=== PATIENT | male | born 1975 | race Caucasian/White ===

== ENCOUNTER 2019-06-19 06:58 | Inpatient (IN) ==
[~2019-06-19 06:58] MED LIST: BUPIVACAINE HCL/PF 10 ML VIAL ONE; CLINDAMYCIN PHOSPHATE 900 MG in DEXTROSE 5 % IN WATER 100 ML IV PRN; LIDOCAINE HCL 20 ML VIAL ONE; MIDAZOLAM HCL/PF 1 MG/ML VIAL ONE; PROPOFOL VIAL IV ONE; ROPIVACAINE HCL/PF 100 MG, EPINEPHrine 0.2 MG, KETOROLAC TROMETHAMINE 30 MG in NORMAL S... IJ PRN; TRANEXAMIC ACID 1,000 MG in NORMAL SALINE 100 ML IV PRN
[2019-06-19] MEDS: RINGER'S SOLUTION,LACTATED 1,000 ML IV PRN ×2 (07:51→10:50)
--- NOTE | 2019-06-19 09:08 | ANES ---
Anesthesia Pre Procedure Eval Vitals/Labs: Last Vital Signs Temp 37.0 C 06/19/19 07:30 Pulse 94 06/19/19 07:30 Resp 18 06/19/19 07:30 BP 116/88 06/19/19 07:30 Pulse Ox 96 06/19/19 07:30 HOME MEDICATIONS Albuterol Sulfate [Albuterol Sulfate 2.5 MG/3 ML] 2.5 mg INHALATION Q4H PRN 02/03/18 [Last Taken 06/19/19] albuterol sulfate 90 mcg/actuation aerosol inhaler 2 puff INHALATION Q4H PRN g 05/23/19 [Last Taken 06/19/19] gabapentin 600 mg tablet 600 mg PO DAILY PRN 05/23/19 [Last Taken Unknown] lorazepam 0.5 mg tablet 1 mg PO TID PRN tab 05/23/19 [Last Taken 06/18/19] metformin 850 mg tablet 850 mg PO BID 05/23/19 [Last Taken 06/18/19] Ascorbic Acid [Vitamin C] 1,000 mg PO DAILY 06/19/19 [Last Taken 06/18/19] Multivitamin [Multivitamins] 1 ea PO DAILY 06/19/19 [Last Taken 06/18/19] Allergies/Adverse Reactions: Allergies Allergy/AdvReac Type Severity Reaction Status Date / Time Penicillins Allergy Severe Anaphylaxis Verified 06/13/19 09:09 house dust Allergy Mild rash, Verified 06/19/19 07:45 swollen eyes escitalopram [From Lexapro] AdvReac Mild severe Verified 06/19/19 07:45 drowsiness - Planned Procedure Planned Procedure: R total hip Medication List Reviewed:: Yes Allergies Verified: Yes Medical History (Last Reviewed 06/19/19 @ 09:07 by Mark Reed CRNA) Bilateral primary osteoarthritis of hip (Chronic) Weight loss, intentional 170lbs in 8 months Alcohol abuse, in remission Onset Date: Unknown Stopped 5 years ago. dvrn 07/19/14 Anxiety Arthritis Onset Date: Unknown Asthma Back pain, chronic Onset Date: Unknown Born with an extra vertebrae COPD (chronic obstructive pulmonary disease) Onset Date: Unknown p/t declines Sleep apnea Onset Date: Unknown Had sleep study at [facility] 06/2014. dvrn 07/19/14 p/t reports resolved Type 2 diabetes mellitus Surgical History (Last Reviewed 06/19/19 @ 09:07 by Mark Reed CRNA) History of arthroscopic knee surgery Onset Date: Unknown left- Knee fx age 11 and meniscus tear at age 12 x3 surgeries total History of tonsillectomy Family History (Last Reviewed 06/19/19 @ 09:07 by Mark Reed CRNA) Mother CHF (congestive heart failure) COPD (chronic obstructive pulmonary disease) Father Diabetes borderline Sister CHF (congestive heart failure) Brother , 2 at and 1 at age 2 months of SIDS No problems noted. Sister Liver failure Son [id number] syndrome Daughter Defective spinal cord development Daughter Alive and well - Family Anesthesia History Family History:: no untoward family reactions to anesthesia - Airway/Neck/Teeth Within Normal Limits:: Yes Teeth Condition: intact Neck Exam: full range of motion Mallampatti Score: 2 Thyromental (T-M) distance: > 6 cm Mandibulo Hyoid distance: > 3 cm - Respiratory Respiratory History: asthma Respiratory Physical: lungs clear Smoking Status: Former smoker Sleep Apnea currently treated: No Sleep Apnea by current assessment: No - Cardiovascular Tolerate Activity: Good Heart Sounds: S1 & S2, Regular - Anesthesia Assessment and Plan ASA Class: PS, II Anesthesia Type Plan: Spinal Planned difficult intubation/equipment available: No
[2019-06-19] MEDS: ALBUTEROL SULFATE 2.5 MG/0.5 ML VIAL.NEB IH ONE ×2 (09:17→13:10)
[2019-06-19] MEDS ORDERED: PROPOFOL VIAL IV ONE (12:01)
[2019-06-19] MEDS ORDERED: MAGNESIUM HYDROXIDE 30 ML UDC PO PRN (12:18)
[2019-06-19] MEDS ORDERED: ACETAMINOPHEN 500 MG TABLET PO PRN (12:18)
[2019-06-19] MEDS ORDERED: ONDANSETRON HCL/PF 2 MG/ML VIAL IV PRN (12:18)
[2019-06-19] MEDS ORDERED: MAG HYDROX/ALUMINUM HYD/SIMETH 30 ML UDC PO PRN (12:18)
[2019-06-19] MEDS ORDERED: oxyCODONE HCL/ACETAMINOPHEN 1 TAB TABLET PO PRN (12:18)
[2019-06-19] MEDS ORDERED: LORazepam 1 MG TABLET PO PRN (12:21)
[2019-06-19] MEDS ORDERED: GABAPENTIN 600 MG TABLET PO PRN (12:21)
[2019-06-19] MEDS ORDERED: NON-FORMULARY 1 DOSE DOSE (Albuterol Sulfate [Albuterol Sulfate 2.5 Mg/3 Ml] 2.5 MG) inhalation PRN (12:21)
--- NOTE | 2019-06-19 12:26 | OR ---
Operative Report - Dictated Report Narrative: Date: 06/19/2019 Preoperative diagnosis: Right hip degenerative joint disease. Postoperative diagnosis: Right hip degenerative joint disease. Procedure: Right total hip arthroplasty. Surgeon: Lawrence Velarde M.D. Summer Child Caregiver: Adrian Delatorre PA-C Anesthesia: Spinal and local periarticular joint injection. Complications: None Specimens: Bone for disposal. Estimated blood loss: 200 milliliters. Retained implants: Depuy [place] size 6 femoral stem high offset. Size 56 millimeter ouside diameter 3-hole [place] Gription acetabular cup. 56 millimeter outside by 36 millimeter inside diameter highly cross-linked acetabular liner. 36 millimeter diameter + 5 millimeter cobalt chromium femoral head. Cancellous 6.5mm screw 35 millimeter length Indications: Charli is a 43-year-old healthy male who has been followed in my clinic for period of time with significant complaints of right hip pain consistent with arthritic changes. He has failed conservative measures including but not limited to activity modification, passage of time, medications, and other conservative measures. Patient wished to proceed with surgical treatment. The risks, benefits, and alternatives were discussed in clinic. The risks of , blood clots, bleeding, infection, nerve/tendon bl ood vessel/ injury, malposition of components, dislocation and/or instability of joint, intraoperative fracture, postoperative limited range of motion, persistent pain, failure of components, and need for additional procedures. Patient wished to proceed. Consent was obtained after answering all questions. Procedure: After marking the correct extremity on the floor, the patient was taken to the operating room. A timeout was performed. IV antibiotics consisting of 2 g of Ancef were administered prior to the procedure. A spinal anesthetic was induced by anesthesia. A Siegel catheter was inserted. The patient was then transitioned to a lateral position on a well-padded pegboard. And an axillary roll was placed. The head was in neutral position. The non- operative down leg was well-padded with SCD and MARIPOSA hose in place. The arms were supported and padded to protect from any undue pressure on the bony prominences and nerves. Well-padded anterior and posterior pelvic and chest posts were secured in order to maintain a stable position of the pelvis. This was placed so that the pelvis was perpendicular to the floor. The body was in line with the pelvis. Once it was felt that we had protected all the bony prominences and the patient was well secured with a safety belt as well, the leg was pre-scrubbed with alcohol, prepped and draped in a standard sterile fashion. A standard anterior lateral hip incision was marked out over the greater trochanter. Ioban drapes were then placed. The skin incision was then made. Sharp dissection with a scalpel utilizing cautery for hemostasis was carried out down to the gluteus and iliotibial band fascia. This was split in line with the skin incision. The greater trochanter bursa was excised. The anterior and posterior margins of the abductor tendon were identified. The anterior 1/3 of the tendon was tagged and reflected off the greater trochanter leaving a sleeve of tendon for repair at the completion of the case. This exposed the underlying hip joint capsule. A limb length stitch was placed in the skin and referenced off a sasha on the greater trochanter for evaluation of intraoperative limb lengths. An inverted T-type capsulotomy was made extending this up to the brim of the acetabulum. Using Homans to assist with elevation of the soft tissues off the anterior, superior, and inferior aspects of the femoral neck, the hip was then placed in a figure 4 position and the femoral head was dislocated. With the leg in an externally rotated and adducted position, the cutting flag was utilized in order to sasha for a standard femoral neck cut approximately a fingerbreadth above the level of the lesser trochanter. This was done while protecting the surrounding soft tissues with Homans. The femoral head was then removed and sized for guidance on preparation of the acetabulum. It was noted that there was loss of articular cartilage on both the femoral head and weightbearing portions of the acetabulum. We then returned the leg to the table and turned our attention to the acetabulum. While protecting the surrounding soft tissues, the labrum and remaining tissue in the fovea were excised using a scalpel and cautery. A series of reamers up to size 55 millimeter were utilized to prepare the acetabulum. The final reamer had good purchase and exposed the bleeding subchondral bone. The acetabulum was then thoroughly irrigated ensuring that all bony and cartilaginous materials were removed and the final acetabular shell was impacted into place. This was placed in approximately 45 degrees of abduction and 20 degrees of anteversion utilizing the outrigger and body axis for alignment. This had a good press fit. One 6.5 x 35 mm cancellous screw was placed in the posterior superior quadrant of the acetabulum. The shell was then thoroughly irrigated and the final polyethylene was impacted into place ensuring that it seated completely. This was then protected with a sponge while we returned our attention to the femur. With the leg in a figure 4 position utilizing Homans for soft tissue protection, a box cutting osteotome, followed by Charnley awl, followed by serial reamers and broaches were utilized in order to prepare the femur. It was found that a size 6 broach gave good axial and rotational stability. The calcar reamer was utilized in order to clean up the cut edges. The proximal femur was visualized to ensure that there were no signs of fracture. A series of heads and necks were trialed. It was found that a high offset neck and a + 5 mm femoral head gave good overall stability. There was minimal longitudinal instability. With the leg in the position of sleep the femoral head was well covered. Hip range of motion was able to reach full extension and external rotation to greater than 75 degrees prior to impingement along the posterior acetabulum. The hip was able to be flexed to greater than 90 degrees with internal rotation greater than 60 degrees prior to anterior impingement. The limb lengths were near equal based on comparison to the contralateral side in the prior placed limb length stitch. At this point was felt this was the appropriately sized femoral components as well as neck and femoral head. The trial implants were removed. The femur was thoroughly irrigated. The final implants were impacted in the place and the hip was reduced. After ensuring that there was no damage to the proximal femur, the standard periarticular joint injection of ropivacaine, Toradol, and epinephrine were injected into the joint capsule and surrounding soft tissues. The capsule was repaired with interrupted #1 Vicryl. The abductor tendon was repaired to the greater trochanter utilizing Mersilene tape through drill holes. This was oversewn with #1 Vicryl. The fascia was closed with running #1 PDS barbed suture. The wounds were thoroughly irrigated as we closed in layers. The deep fat layers were closed with running 0 PDS barbed suture. The subcutaneous tissue was closed with interrupted 3-0 Vicryl and the skin with a running subcuticular 4-0 monocryl and Prineo dressing. All sponge, needle, blade, and instrument counts were correct prior to closing the wounds. Sterile dressings consisting of 4 x 4's, ABD, and tape were applied. The patient was awoken and transferred to her hospital bed and then to the postanesthesia care unit in stab le condition. Postoperative condition: The plan is to admit to the medical/surgical inpatient floor postoperatively. There will be a projected 2 to 4 day hospital stay. Postoperatively 24 hours of IV antibiotics, pain control, physical therapy, occupational therapy, and medical comanagement will be utilized. Patient will be weightbearing as tolerated with anterior hip precautions. Postoperative films will be obtained in the recovery room.
[2019-06-19] MEDS: ALBUTEROL SULFATE 2.5 MG/0.5 ML VIAL.NEB IH PRN (13:30)
[2019-06-19] MEDS: NORMAL SALINE 1,000 ML IV PRN ×2 (13:33→22:39)
[2019-06-19] MEDS: KETOROLAC TROMETHAMINE 30 MG/ML VIAL IV SCH ×2 (13:41→20:19)
--- NOTE | 2019-06-19 14:09 | ANES ---
Post Anesthesia Assessment - Vital Signs Vitals: Last Vital Signs Temp 36.4 C 06/19/19 13:25 Pulse 63 06/19/19 13:55 Resp 12 06/19/19 13:40 BP 115/63 06/19/19 13:55 Pulse Ox 100 06/19/19 13:55 Airway Patency: Normal - Mental Status Level Of Consciousness: Awake - Pain Level Pain Score: 0 - N/V Assessment Nausea/Vomiting Presence: None Dehydration:: No
--- NOTE | 2019-06-19 14:09 | ANES ---
Post Anesthesia Discharge - Transfer of Care Transfer of Care handoff given to nurse: Yes - Discharge from PACU Discharge from PACU when meets criteria: Yes
[2019-06-19] MEDS: CLINDAMYCIN PHOSPHATE 900 MG in DEXTROSE 5 % IN WATER 100 ML IV SCH ×4 (15:50→21:44)
[2019-06-19] MEDS ORDERED: ceFAZolin SODIUM 2 GM in DEXTROSE 5 % IN WATER 50 ML IV SCH ×2 (16:00)
[2019-06-19] MEDS: oxyCODONE HCL/ACETAMINOPHEN 1 TAB TABLET PO PRN (18:52)
[2019-06-19] MEDS ORDERED: SENNOSIDES/DOCUSATE SODIUM 1 TAB TABLET PO SCH (21:00)
[2019-06-20] MEDS: KETOROLAC TROMETHAMINE 30 MG/ML VIAL IV SCH ×2 (00:40→06:54)
[2019-06-20] MEDS: CLINDAMYCIN PHOSPHATE 900 MG in DEXTROSE 5 % IN WATER 100 ML IV SCH ×2 (03:36)
[2019-06-20] MEDS: oxyCODONE HCL/ACETAMINOPHEN 1 TAB TABLET PO PRN (04:34)
[2019-06-20 06:33] LABS: Hemoglobin 12.4 gm/dL (13.5-18.0); Mean Cell Volume 94.7 fl (78-100); Mean Corpuscular Hemoglobin 32.6 pg (27-31); Mean Corpuscular Hgb Conc 34.4 g/dl (32-36); Mean Platelet Volume 8.8 fl (8-11.3); Platelet Count 158 K/mm3 (150-450); Red Cell Distribution Width 13.4 % (11.5-14.0); White Blood Count 7.5 K/mm3 (4.0-10.5)
[2019-06-20] MEDS: ALBUTEROL SULFATE 2.5 MG/0.5 ML VIAL.NEB IH PRN (07:01)
[2019-06-20 07:55] LABS: Anion Gap 10.9 mmol/L (6.8-13.8); BUN/Creatinine Ratio 20.7 (9.0-21.6); Calcium * 7.9 mg/dL (7.9-10.9); Estimated Creat Clear 136.7; Potassium 3.9 mmol/L (3.4-4.6)
--- NOTE | 2019-06-20 10:11 | DS ---
(1) Status post total hip replacement, right Problem: Acute Date of Discharge:: 06/20/19 Description of Stay: Patient is a 43-year-old male was admitted status post right total hip arthroplasty. Patient was admitted for postoperative monitoring, pain control, return to p.o. diet, postoperative complications. Patient has had an uncomplicated stay. He has met all goals with physical therapy including stairs. Patient is return to p.o. diet without complication, his pain is under control with p.o. pain medication. Patient will be discharged home. Exam today of right lower extremity reveals pernio in place, no significant erythema or drainage, distal capillary refill brisk, 4+/5 hip flexion, knee flexion and extension, sensation intact light touch. Discussed with patient follow-up at orthopedic outpatient clinic at 2 weeks postoperative. He will begin outpatient PT. Saulo with patient postoperative care and continued monitoring. Patient will continue with the following recommendations: -Weightbearing as tolerated, anterior precautions, assistive device PRN -PT/OT progress as tolerated per protocol -P.o. diet as tolerated -P.o. pain medication PRN, Percocet 5/325 mg 1-2 tabs every 4-6 hours as needed for pain p.o. -Maintain postoperative dressing in place -Follow-up in orthopedic outpatient clinic at 2 weeks postoperative -DVT prophylaxis: Lovenox for 10 days followed by 325 mg aspirin daily for 6 weeks -Disposition: Discharge home begin outpatient physical therapy Procedures Performed: see notes below List Procedures: Status post right total hip arthroplasty Results and Findings: Lab Pending Results 06/20/19 06:28: WBC 7.5, RBC 3.80 L, Hgb 12.4 L, Hct 36.0 L, MCV 94.7, MCH 32.6 H, MCHC 34.4, RDW 13.4, Plt Count 158, MPV 8.8 06/20/19 06:28: Sodium 137, Plasma Sodium 137, Potassium 3.9, Chloride 107 H, Carbon Dioxide 23.0 L, Anion Gap 10.9, BUN 17, Creatinine 0.82, Est GFR (Non-Af Amer) 108 D, BUN/Creatinine Ratio 20.7, Random Glucose 111 H, Calcium 7.9 Discharge Location: Home Disposition: Home self-care Condition: Good Discharge Activity: Activity as tolerated, Weight bearing - Anterior precautions Discharge Diet: General/regular food Referrals: Lawrence Velarde MD [Staff Physician] - 07/04/19 9:30 am Problem Oriented Discharge Instructions to Patient/Family: Total Hip Replacement, [id number] Print Language (Luxembourger or Malagasy Available): Luxembourger Additional Patient Instructions (free text): Patient [facility] on TuesdayJune 22 at 10:00am. Please fax demographic sheet and PT order to [phone]. Follow up Orthopedic office appointment schedule with Dr. Velarde on TuesdayJuly 04 at 9:30am. Prescriptions (Any new or edited meds): Enoxaparin Sodium [Lovenox] 40 mg SC Q24H #9 disp.syrin Transmission Status: Pending to [facility] #[id number] oxyCODONE HCL/ACETAMINOPHEN [Percocet 5 MG/325 MG] 1 - 2 tab PO Q4H PRN #60 tab PRN Reason: Severe Pain (Pain Scale 7-10) Transmission Status: Received by [facility] #[id number] Complete Home Medications List: Complete Home Medication List: Albuterol Sulfate [Albuterol Sulfate 2.5 MG/3 ML] 2.5 mg INHALATION Q4H PRN 02/03/18 albuterol sulfate 90 mcg/actuation aerosol inhaler 2 puff INHALATION Q4H PRN g 05/23/19 gabapentin 600 mg tablet 600 mg PO DAILY PRN 05/23/19 lorazepam 0.5 mg tablet 1 mg PO TID PRN tab 05/23/19 metformin 850 mg tablet 850 mg PO BID 05/23/19 Ascorbic Acid [Vitamin C] 1,000 mg PO DAILY 06/19/19 Multivitamin [Multivitamins] 1 ea PO DAILY 06/19/19 Enoxaparin Sodium [Lovenox] 40 mg SC Q24H #9 disp.syrin 06/20/19 oxyCODONE HCL/ACETAMINOPHEN [Percocet 5 MG/325 MG] 1 - 2 tab PO Q4H PRN #60 tab 06/20/19 Amb Orders for Discharge: PT Evaluation and Treatment* Location: None Selected
[2019-06-20 10:59] VITALS: BP 117/65
[2019-06-20] MEDS ORDERED: ENOXAPARIN SODIUM 40 MG/0.4 ML SYRG SC SCH (11:19)
== END 2019-06-20 11:00 | disposition home or self-care (01) | DRG 470 ==
LOC: MS 06:58
PROVIDERS: ADMIT Orthopaedic Surgery; ATTEND Orthopaedic Surgery
DX: F41.9 Anxiety disorder, unspecified; M16.11 Unilateral primary osteoarthritis, right hip; E11.9 Type 2 diabetes mellitus without complications; J45.909 Unspecified asthma, uncomplicated
CPT/HCPCS: 36415; 73502; 80048; 85027; 94640; 94664; 97116; 97161; 97165